=== PATIENT | female | born 1990 | race American Indian/Alaskan Native ===

== ENCOUNTER 2016-11-05 08:52 | Emergency (ER) | payer SELFPAY ==
[2016-11-05] MEDS ORDERED: MOTRIN PO ONE (12:01)
--- NOTE | 2016-11-05 12:36 | Emergency Department Report ---
ED Neck Pain/Injury HPI - General Chief Complaint: Neck Pain/Injury Stated Complaint: LT SHOULDER/NECK PAIN Time Seen by Provider: 11/05/16 11:20 Mode of arrival: Ambulatory Limitations: No Limitations - History of Present Illness Initial Comments: This is a 26-year-old female that presents with neck pain that radiates down to the left shoulder. Patient stated she woke up this morning with neck stiffness that progressed to radiation to the left shoulder. Patient denies any trauma to the area. Denies any fever, chills, chest pain, short of breath, headache, dizziness, nausea or vomiting. Patient states the pain is described as sharp that increases with head rotation to the left. Denies any significant past medical history. Last menstrual cycle 08/04/2059 because patient is taking testosterone hormone. Patient denies any drug allergies. No significant past medical history besides sickle cell. MD Complaint: neck pain -: Gradual, days(s) (1) Place: home Radiation: left shoulder Severity: moderate Severity scale (0 -10): 10 Quality: sharp Consistency: constant Improves With: none Worsens With: none Context: unknown Associated Symptoms: none. denies: headache, fever, numbness, tingling, weakness, vertigo, difficulty walking, swollen glands, difficulty swallowing, nausea, vomiting Treatments Prior to Arrival: Acetaminophen - Related Data Home Medications Medication Instructions Recorded Confirmed Last Taken Omeprazole Magnesium [Prilosec Otc] 04/14/13 04/14/13 04/12/13 08:00 Ranitidine HCl [Zantac] 20 mg PO 04/14/13 04/14/13 04/14/13 08:00 Previous Rx's Medication Instructions Recorded Last Taken Type Dexlansoprazole [Dexilant] 60 mg PO QDAY #30 04/15/13 Unknown Rx Sulfamethoxazole/Trimethoprim 1 each PO BID #14 tablet 04/15/13 Unknown Rx [Bactrim DS] Ibuprofen [Motrin] 800 mg PO Q8H #30 tablet 05/18/14 Unknown Rx methOCARBAMOL [Robaxin] 500 mg PO BID #30 tab 05/18/14 Unknown Rx traMADol [Ultram 50 MG tab] 50 mg PO Q6HR PRN #20 tablet 05/18/14 Unknown Rx Cyclobenzaprine [Flexeril] 10 mg PO TID PRN #15 tablet 11/05/16 Unknown Rx Ibuprofen [Motrin 600 MG tab] 600 mg PO Q8H PRN #20 tablet 11/05/16 Unknown Rx Allergies Allergy/AdvReac Type Severity Reaction Status Date / Time corn [[place]] Allergy Unknown Verified 04/14/13 22:51 peanut Allergy Diarrhea Verified 04/14/13 22:51 shellfish derived Allergy Nausea Verified 04/14/13 22:51 soybean Allergy Nausea Verified 04/14/13 22:51 citrus Allergy Unknown Uncoded 04/14/13 22:51 ED Review of Systems ROS: Stated complaint: LT SHOULDER/NECK PAIN Other details as noted in HPI Constitutional: denies: chills, fever Eyes: denies: eye pain, eye discharge, vision change ENT: denies: ear pain, throat pain Respiratory: denies: cough, shortness of breath, wheezing Cardiovascular: denies: chest pain, palpitations Endocrine: no symptoms reported Gastrointestinal: denies: abdominal pain, nausea, diarrhea Genitourinary: denies: urgency, dysuria, discharge Musculoskeletal: denies: back pain, joint swelling, arthralgia Skin: denies: rash, lesions Neurological: denies: headache, weakness, paresthesias Psychiatric: denies: anxiety, depression Hematological/Lymphatic: denies: easy bleeding, easy bruising ED Past Medical Hx - Past Medical History Previous Medical History?: Yes Additional medical history: Sickle cell trait - Surgical History Past Surgical History?: Yes Additional Surgical History: R. index finger - Social History Smoking Status: Never Smoker Substance Use Type: None - Medications Home Medications: Home Medications Medication Instructions Recorded Confirmed Last Taken Type Omeprazole Magnesium [Prilosec Otc] 04/14/13 04/14/13 04/12/13 08:00 History Ranitidine HCl [Zantac] 20 mg PO 04/14/13 04/14/13 04/14/13 08:00 History Dexlansoprazole [Dexilant] 60 mg PO QDAY #30 04/15/13 Unknown Rx Sulfamethoxazole/Trimethoprim 1 each PO BID #14 tablet 04/15/13 Unknown Rx [Bactrim DS] Ibuprofen [Motrin] 800 mg PO Q8H #30 tablet 05/18/14 Unknown Rx methOCARBAMOL [Robaxin] 500 mg PO BID #30 tab 05/18/14 Unknown Rx traMADol [Ultram 50 MG tab] 50 mg PO Q6HR PRN #20 tablet 05/18/14 Unknown Rx Cyclobenzaprine [Flexeril] 10 mg PO TID PRN #15 tablet 11/05/16 Unknown Rx Ibuprofen [Motrin 600 MG tab] 600 mg PO Q8H PRN #20 tablet 11/05/16 Unknown Rx ED Physical Exam - General Limitations: No Limitations General appearance: alert, in no apparent distress - Head Head exam: Present: atraumatic, normocephalic, normal inspection - Eye Eye exam: Present: normal appearance, PERRL, EOMI. Absent: scleral icterus, conjunctival injection, nystagmus, periorbital swelling, periorbital tenderness Pupils: Present: normal accommodation - ENT ENT exam: Present: normal exam, normal orophraynx, mucous membranes moist, TM's normal bilaterally, normal external ear exam - Neck Neck exam: Present: normal inspection, full ROM. Absent: tenderness, meningismus, lymphadenopathy, thyromegaly - Expanded Neck Exam Expanded Neck exam: Absent: tenderness, midline deformity, anterior neck swelling, thyroid mass, carotid bruit, tracheal deviation - Respiratory Respiratory exam: Present: normal lung sounds bilaterally. Absent: respiratory distress, wheezes, rales, rhonchi, stridor, chest wall tenderness, accessory muscle use, decreased breath sounds, prolonged expiratory - Cardiovascular Cardiovascular Exam: Present: regular rate, normal rhythm, normal heart sounds. Absent: bradycardia, tachycardia, irregular rhythm, systolic murmur, diastolic murmur, rubs, gallop - GI/Abdominal GI/Abdominal exam: Present: soft, normal bowel sounds. Absent: distended, tenderness, guarding, rebound, rigid, diminished bowel sounds - Extremities Exam Extremities exam: Present: normal inspection, full ROM, normal capillary refill. Absent: tenderness, pedal edema, joint swelling, calf tenderness - Back Exam Back exam: Present: normal inspection, full ROM. Absent: tenderness, CVA tenderness (R), CVA tenderness (L), muscle spasm, paraspinal tenderness, vertebral tenderness, rash noted - Neurological Exam Neurological exam: Present: alert, oriented X3, CN II-XII intact, normal gait - Psychiatric Psychiatric exam: Present: normal affect, normal mood - Skin Skin exam: Present: warm, dry, intact, normal color. Absent: rash - Other Other exam information: Negative stiff neck exam. Normal ROM with slight discomfort due to pain. Negative Kernig sign and brudzinki sign. ED Course Vital Signs 11/05/16 11/05/16 09:51 13:01 Temperature 99.3 F Pulse Rate 90 Respiratory 18 Rate Blood Pressure 159/107 147/90 [Right] O2 Sat by Pulse 100 Oximetry - Reevaluation(s) Reevaluation #1: 11/05/16 12:43 Patient is resting in bed with no signs of distress noted. ED Medical Decision Making - Lab Data Result diagrams: 11/05/16 12:46 - Medical Decision Making Ed course: This is a 26-year-old female that presents with cervical radiculopathy 1- patient was examined by myself. A CT scan without contrast of cervical has been obtained. Result has been notified to the patient with no further questions noted by patient. 2- CBC, and test has been obtained 3- patient was discharged with Flexeril and ibuprofen and was instructed not to operate heavy machinery while taking Flexeril due to sedation drowsiness. 4- I notified the patient about findings and likely this is due to muscle spasm. Patient agrees to the discharge plan of care and has no further questions noted. 5- at time time of discharge, the patient does not seem toxic or ill in appearance. No acute signs of distress noted. Patient agrees to discharge treatment plan of care. No further questions noted by the patient. 6- patient received a cervical collar at discharge due to pain. Critical care attestation.: If time is entered above; I have spent that time in minutes in the direct care of this critically ill patient, excluding procedure time. ED Disposition Clinical Impression: Cervical radiculopathy Disposition: DC-01 TO HOME OR SELFCARE Is pt being admited?: No Does the pt Need Aspirin: No Condition: Stable Instructions: Ibuprofen (By mouth), Cervical Spine Strain (ED), Soft Cervical Collar (ED), Cervical Radiculopathy (ED) Additional Instructions: Follow-up with her primary care doctor in 3-5 days or symptoms worsen and unbearable return to emergency room as was possible. Take ibuprofen and Flexeril as prescribed. Do not operate heavy machinery while taking Flexeril due to sedation Prescriptions: Cyclobenzaprine [Flexeril] 10 mg PO TID PRN #15 tablet PRN Reason: Muscle Spasm Ibuprofen [Motrin 600 MG tab] 600 mg PO Q8H PRN #20 tablet PRN Reason: Pain Referrals: PRIMARY CAREMD [Primary Care Provider] - 3-5 Days KENYETTA MATT JR, MD [Staff Physician] - 3-5 Days [facility] [Outside] - 3-5 Days [facility] [Outside] - 3-5 Days Forms: Work/School Release Form(ED)
--- NOTE | 2016-11-05 12:56 | Cat Scan Report ---
CT SCAN OF THE CERVICAL SPINE: HISTORY: Neck pain, stiffness.. TECHNIQUE: Contiguous 1.25 mm axial images of the cervical spine were obtained. Sagittal and coronal reformatted images. FINDINGS: There is mild levocurvature to the cervical region versus poor positioning of the patient. The body, pedicles and posterior ligaments appear normal. No evidence of fracture or subluxation is seen. The spinal canal appears normal. The prevertebral soft tissues appear normal. IMPRESSION: No acute process is noted. Mild levocurvature of the cervical spine may be secondary to scoliosis or positioning of the patient.
[2016-11-05 13:05] LABS: Hemoglobin 17.1 gm/dl (10.1-14.3); Mean Corpuscular HGB Conc 33 % (30-34); Mean Corpuscular Hemoglobin 27 pg (28-32); Mean Corpuscular Volume 82 fl (79-97); Platelet Count 202 K/mm3 (140-440); Red Blood Count 6.35 M/mm3 (3.65-5.03); Red Cell Distribution Width 16.6 % (13.2-15.2); White Blood Count 7.4 K/mm3 (4.5-11.0)
[2016-11-05 13:29] VITALS: BP 140/88
[2016-11-05 13:54] LABS: Basophils % (Manual) 0 % (0.0-1.8); Blastocytes % (Manual) 0 %
[2016-11-05 13:55] LABS: Anisocytosis 1+; Diff Status Complete; Stomatocytes Few
== END 2016-11-05 13:50 | disposition home or self-care (01) ==
LOC: ED 08:52
DX: M54.12 Radiculopathy, cervical region (principal); Z91.013 Allergy to seafood; Z91.018 Allergy to other foods
CPT/HCPCS: 36415; 72125; 84703; 85007; 85025; 99284